=== PATIENT | male | born 1960 | race Caucasian/White ===

== ENCOUNTER 2021-02-22 11:27 | Outpatient (CLI) | payer OTHER, SELFPAY ==
--- NOTE | 2021-02-22 11:40 | XR_ITS ---
WS: [id number] Right knee, 4 views, 02/22/2021 Clinical Data: RIGHT KNEE PAIN Comparison: None. Findings: No fractures or dislocations are seen. There is narrowing of the medial joint compartment with small medial femoral condyle and medial tibial plateau spurs. There are posterior patellar spurs. The soft tissues are unremarkable. XR/XR knee RT 4V [id number] Impression: Minimal osteoarthritis of the medial joint compartment and posterior patella of the right knee. Kellgren-Tree Classification: grade 2 (minimal): definite osteophytes and p ossible joint space narrowing
== END 2021-02-22 11:28 | disposition home or self-care (01) ==
PROVIDERS: PCP Internal Medicine; Visit Provider Nurse Practitioner Family
DX: M25.561 Pain in right knee (principal); M17.11 Unilateral primary osteoarthritis, right knee
CPT/HCPCS: 73564

== ENCOUNTER 2021-03-07 15:00 | Outpatient (CLI) | payer OTHER, SELFPAY ==
--- NOTE | 2021-03-07 15:03 | MR_ITS ---
WS: [id number] MRI RIGHT KNEE HISTORY: KNEE JOINT Instability; right KNEE PAIN COMPARISON: 02/22/2021 radiographs Anterior cruciate ligament: Complete tear of the distal ACL. Posterior cruciate ligament: Intact. Medial collateral ligament: Intact but displaced from the joint line by the extruded meniscus. Posterior lateral corner structures: Intact. Medial menisci: Complex tear in the posterior horn. Marked fraying along the surfaces and very little normal meniscus identified. Suspected meniscal fragment towards the meniscal root. Lateral meniscus: Intrasubstance degeneration in the posterior horn and the anterior horn. No definit e tear is identified. Extensor mechanism: Distal quadriceps tendon is normal. Increased signal in the distal patellar tendo n from tendinopathy. Fluid and soft tissue: Moderate-sized suprapatellar joint effusion is mildly complex suggesting there has been hemorrhage also. There is a moderate amount of soft tissue edema around the anterior knee a nd also extending into the muscles posterior to the fibula. Moderate-sized Mix's cyst. Osseous and articular structures: Patellofemoral compartment: Mild narrowing of patellofemoral joint space. Focal defect at the patella r eminence. No marrow edema. Medial compartment: Moderate thinning and fissuring of the cartilage. Along the weightbearing surface is a 6 mm defect in the femoral cartilage. Very small amount of marrow edema along the tibial platea u. Lateral compartment: Joint space is preserved with some mild thinning and fissuring of the cartilage. No fracture. There is a very small amount of marrow edema and osteochondral defect along the tibial plateau towards the tibial spine. Edema within the infrapatellar fat pad. MR/MR knee RT wo con* [id number] IMPRESSION: 1. Torn distal ACL. 2. Complex tear posterior horn medial meniscus. Suspect meniscal fragment at t he root. Medial meniscus is extruded from the joint line. 3. Moderate-sized joint effusion and Mix's cyst. 4. Moderate thinning and fissuring of the cartilage in the medial compartment with a focal cartilage defect along the weightbearing surface of the femoral co ndyle. 5. Small osteochondral lesion along the lateral tibial plateau adjacent to the anterior tibial spine. 6. Focal patellar eminence chondromalacia. 7. Edema within the infrapatellar fat pad and a large amount of soft tissue ed rula surrounding the knee.
== END 2021-03-07 15:01 | disposition home or self-care (01) ==
LOC: RADSHAW 15:01
PROVIDERS: PCP Internal Medicine; Visit Provider Nurse Practitioner Family
DX: M25.361 Other instability, right knee (principal); S83.511A Sprain of anterior cruciate ligament of right knee, initial encounter; S83.231A Complex tear of medial meniscus, current injury, right knee, initial encounter; M25.461 Effusion, right knee; M71.21 Synovial cyst of popliteal space [Baker], right knee; M22.41 Chondromalacia patellae, right knee; R60.0 Localized edema; X58.XXXA Exposure to other specified factors, initial encounter
CPT/HCPCS: 73721

== ENCOUNTER 2021-04-04 12:19 | Outpatient (RCR) | payer OTHER, SELFPAY | END 2021-04-15 23:59 | disposition home or self-care (01) | LOC: SPT 12:19 | PROVIDERS: PCP Internal Medicine; Referring Provider Orthopaedic Surgery; Visit Provider Orthopaedic Surgery | DX: M17.11 Unilateral primary osteoarthritis, right knee (principal) | CPT/HCPCS: 97110; 97161 ==

== ENCOUNTER 2021-04-16 06:00 | Outpatient (RCR) | payer OTHER, SELFPAY | END 2021-05-16 23:59 | disposition home or self-care (01) | LOC: SPT 06:00 | PROVIDERS: PCP Internal Medicine; Referring Provider Orthopaedic Surgery; Visit Provider Orthopaedic Surgery | DX: M17.11 Unilateral primary osteoarthritis, right knee (principal) | CPT/HCPCS: 97110 ==

== ENCOUNTER → 2022-04-28 17:53 | Outpatient (BNVA) | payer BC, MEDICAID, SELFPAY | PROVIDERS: PCP Internal Medicine; Visit Provider Nurse Practitioner Family | DX: J06.9 Acute upper respiratory infection, unspecified (principal) | CPT/HCPCS: 87426 ==

== ENCOUNTER 2023-04-08 15:17 | Outpatient (CLI) | payer BC, MEDICAID, SELFPAY ==
--- NOTE | 2023-04-08 15:55 | XR_ITS ---
WS: [id number] EXAMINATION: XR knee LT 3V* [id number] REASON FOR EXAM: Left knee pain COMPARISON: None available. ORDER DATE: 04/08/2023 3:57 PM FINDINGS: There is no sign of any acute osseous or articular abnormality. Mild degenerative change present. The re are no specific soft tissue abnormalities. No sign of joint effusion XR/XR knee LT 3V* [id number] IMPRESSION: Very minor changes of osteoarthritis
--- NOTE | 2023-04-08 15:55 | XR_ITS ---
WS: [id number] EXAMINATION: XR knee RT 3V* [id number] REASON FOR EXAM: Right knee pain COMPARISON: 01/22/2021 ORDER DATE: 04/08/2023 3:57 PM FINDINGS: There are marginal osteophytes associated with the tibial spines, patella and other articular margins with medial and patellofemoral compartment narrowing. There is no sign of any acute fracture or disl ocation. A small joint effusion cannot be excluded but there is no evidence of any large effusion XR/XR knee RT 3V* [id number] IMPRESSION: MEDIAL AND PATELLOFEMORAL COMPARTMENT NARROWING WITH OSTEOARTHRITIC CHANGES.
== END 2023-04-08 15:18 | disposition home or self-care (01) ==
LOC: RAD 15:34
PROVIDERS: PCP Nurse Practitioner Family; Visit Provider Nurse Practitioner Family
DX: M17.0 Bilateral primary osteoarthritis of knee (principal)
CPT/HCPCS: 73562

== ENCOUNTER → 2023-05-13 12:49 | Outpatient (BNVA) | payer BC, MEDICAID, SELFPAY | PROVIDERS: PCP Nurse Practitioner Family; Referring Provider Nurse Practitioner Family; Visit Provider Specialist | DX: M17.0 Bilateral primary osteoarthritis of knee | CPT/HCPCS: 73560; 73565 ==

== ENCOUNTER 2024-05-27 14:38 | Inpatient (IN) | payer BC, SELFPAY ==
[2024-05-27] VITALS (29 sets, daily range): BP systolic 66–139; BP diastolic 48–91; PULSE 65–108; RESP 10–20; TEMP 36.8; O2SAT 90–99; BMI 45.6; BMI 44.1
--- NOTE | 2024-05-27 14:53 | W.ED.ANIMALB ---
HPI - Animal Bite General: Chief Complaint: Animal Bite Stated Complaint: Snake bite Time Seen by Provider: 05/27/24 14:38 Source: patient and EMS Mode of arrival: EMS Limitations: no limitations History of Present Illness: 63-year-old male who states that he was bit by a copperhead just prior to arrival. Bit him on the left leg he does have pain in the left leg he has no redness or swelling at this time. He denies any other injuries denies any shortness of breath Associated symptoms: Deny chills, fever(s) or headache(s) Related Data Previous Rx's Medication Instructions Recorded benzonatate 200 mg capsule 200 mg PO TID PRN cough #20 caps 04/28/22 prednisone 20 mg tablet 40 mg (2 x 20 mg) PO DAILY 5 days 04/28/22 #10 tabs meloxicam 15 mg tablet See Rx Instructions .Route 06/10/23 .COMPLEX #30 tabs Allergies Allergy/AdvReac Type Severity Reaction Status Date / Time No Known Allergies Allergy Verified 05/13/23 12:53 Review of Systems Const: Denies: fever(s), chills, body aches or change in appetite ENMT: Denies: throat pain or dental pain Card: Denies: chest pain Resp: Denies: dyspnea GI: Denies: abdominal pain, nausea, vomiting or diarrhea Musc: Reports: extremity pain; Denies: neck pain or back pain Skin/Breast: Denies: rash Neuro: Denies: headache(s) PFS ED PFSH: Medical History Hypertension Social History (Updated 05/27/24 @ 20:24 by Woody Taylor MD) Smoking and tobacco/nicotine status: current every day tobacco/nicotine user (VAPE) Alcohol intake: never Substance/Drug Use: never Physical Exam Const: COMMON NORMALS: no acute distress, patient oriented x3 and healthy appearing HENMT: COMMON NORMALS: normocephalic and atraumatic HEAD & SCALP: normocephalic and atraumatic Eye: COMMON NORMALS: Equal, round and reactive pupils present and EOMs intact bilaterally PUPIL: Yes Equal, round and reactive pupils present Neck/C-Spine: COMMON NORMALS: full ROM and supple Chest: COMMONS NORMALS: normal inspection of the chest Resp: COMMON NORMALS: normal respiratory effort, No retractions, No use of accessory muscles and clear to auscultation bilaterally AUSCULTATION: clear to auscultation bilaterally Cardio: COMMON NORMALS: regular rate, regular rhythm and No murmurs present (Cardio) RATE: regular rate RHYTHM: regular rhythm Extremity: COMMON NORMALS: full ROM NARRATIVE EXTREMITY EXAM: 2 puncture wounds noted to left lower leg no erythema or swelling Neuro: COMMON NORMALS: patient oriented x3, moves all extremities and no focal motor deficits Psych: COMMON NORMALS: mental status grossly normal, Normal thought process present and cooperative THOUGHT PROCESS: Normal thought process present Skin: COMMON NORMALS: no rashes or lesions noted and no wounds GENERAL SKIN EXAM: no rashes or lesions noted Course Reevaluation(s): Reevaluation #1: Recheck patient bite rosita he has no redness no swelling at this time he has had some nausea vomiting diarrhea has had slight hypotension could be having allergic reaction we will give him a dose of epinephrine at this time. Time: 16:39 Reevaluation #2: I did consult poison control I spoke to a adjunct phlebotomy instructor who recommended as there was no localized signs of redness or swelling did not give antivenom at this time. They recommended continue to treat like anaphylaxis with epinephrine antihistamines and steroid. Time: 17:11 Reevaluation #3: Patient's vomiting has improved his diarrhea is improving as well as blood pressures improved currently is 123/74 we will continue to monitor at this time Time: 18:57 Vital Signs: Vital signs: Vital Signs Temperature 98.2 F 05/27/24 14:43 Pulse Rate 94 05/27/24 19:39 Respiratory Rate 12 05/27/24 19:39 Blood Pressure 110/76 05/27/24 19:39 Pulse Oximetry 97 05/27/24 19:39 Oxygen Delivery Me thod Room Air 05/27/24 17:05 MDM - Animal Bite Medical Decision Making Patient presents here after a snakebite he had no localized reaction he did end up having a large amount of vomiting diarrhea hypertension likely anaphylactic reaction with histamine response. Patient's improved here after antihistamines Benadryl steroids and 2 doses of epinephrine his blood pressure here is stabilized his vomiting diarrhea is improved greatly. I did speak to poison control and adjunct phlebotomy instructor twice reviewing labs and patient's presentation they did not recommend antivenom at this time and continued treatment as he has improved with epinephrine. I spoke to the hospitalist will admit to the ICU at this time. Patient's heart rate now is 92 blood pressure 127/91 Lab Data 05/27/24 18:38 05/27/24 18:38 Radiology Impressions Chest X-Ray 05/27/24 16:29 IMPRESSION: No acute findings. Laboratory Results WBC 29.70 10^3/uL (3.29-11.43) H 05/27/24 18:38 RBC 6.85 10^6/uL (3.85-5.65) H 05/27/24 18:38 Hgb 18.60 g/dL (11.27-16.99) H 05/27/24 18:38 Hct 58.9 % (37-53) H 05/27/24 18:38 MCV 86.0 fl (82-101) 05/27/24 18:38 MCH 27.2 pg (27-33) 05/27/24 18:38 MCHC 31.6 g/dL (30-55) 05/27/24 18:38 RDW 15.0 % (12.1-15.1) 05/27/24 18:38 Plt Count 377 10^3/cmm (157-399) 05/27/24 18:38 MPV 10.2 fL (7.4-10.4) 05/27/24 18:38 Neut % (Auto) 87.2 % 05/27/24 18:38 Lymph % (Auto) 6.9 % 05/27/24 18:38 [place] % (Auto) 4.8 % 05/27/24 18:38 Eos % (Auto) 0.1 % 05/27/24 18:38 Baso % (Auto) 0.3 % 05/27/24 18:38 Neut # (Auto) 25.89 10^3/uL (1.8-7.7) H 05/27/24 18:38 Lymph # (Auto) 2.1 10^3/uL (0.8-4.8) 05/27/24 18:38 [place] # (Auto) 1.4 10^3/uL (0.2-0.9) H 05/27/24 18:38 Eos # (Auto) 0.0 10^3/uL (0.0-0.8) 05/27/24 18:38 Baso # (Auto) 0.1 10^3/uL (0.0-0.1) 05/27/24 18:38 Nucleated RBC % (auto) 0 % 05/27/24 18:38 Nucleated RBCs # 0.0 /100WBC 05/27/24 18:38 PT 15.00 SECONDS (12.1-14.9) H 05/27/24 18:38 INR 1.14 (0.8-1.2) 05/27/24 18:38 Fibrinogen 370 mg/dL (174-498) 05/27/24 18:38 D-Dimer >= 20.00 ug/mLFEU (0-0.59) H 05/27/24 18:38 Sodium 142 mmol/L (136-145) 05/27/24 18:38 Potassium 3.7 mmol/L (3.5-5.1) 05/27/24 18:38 Chloride 102 mmol/L (98-107) 05/27/24 18:38 Carbon Dioxide 22 mmol/L (22-29) 05/27/24 18:38 Anion Gap 21.7 (5-19) H 05/27/24 18:38 BUN 15 mg/dL (8-23) 05/27/24 18:38 Creatinine 1.5 mg/dL (0.7-1.2) H 05/27/24 18:38 GFR Calculation 47.1 mL/min (90-130) L 05/27/24 18:38 Glucose 197 mg/dL (65-115) H 05/27/24 18:38 Calculated Osmolality 300 mOsm/kg (285-295) H 05/27/24 18:38 Calcium 8.8 mg/dL (8.5-10.5) 05/27/24 18:38 Total Bilirubin 0.3 mg/dL (0.15-1.2) 05/27/24 14:17 AST 17 U/L (0-40) 05/27/24 14:17 ALT 12 U/L (0-41) 05/27/24 14:17 Alkaline Phosphatase 98 U/L (40-130) 05/27/24 14:17 Creatine Kinase 178 U/L (39-308) 05/27/24 18:38 Troponin T Baseline 17 ng/L (0-15) H 05/27/24 16:32 Troponin T 120 Minute 19.96 ng/L (0-15) H 05/27/24 18:05 Delta Troponin T 2.96 ABS# (0-10) 05/27/24 18:05 Total Protein 7.3 g/dL (6.6-8.7) 05/27/24 14:17 Albumin 4.6 g/dL (3.5-5.2) 05/27/24 14:17 Globulin 2.7 g/dL (1.3-4.6) 05/27/24 14:17 All radiology interpretation(s) finalized by discharge Critical Care Time Critical Care Time: Critical Care Time: Yes Total Critical Care Time: 75 Attestation: The high probability of a clinically significant, sudden or life threatening deterioration of the patient's cv system(s) required my full and direct attention, intervention and personal management. The critical care time is as shown. This time is in addition to time spent performing any reported procedures but includes the following: [x] Data and vital sign review and interpretation [x] Patient assessment, examination and intervention [x] Documentation [x] Medication orders and management Discharge Plan Discharge Patient Disposition: Admitted As Inpatient Admit Provider: Woody Taylor Clinical Impression: Anaphylactic reaction, Snake bite Condition: Stable Coding Level of Care Code ED Strategic Debriefing Specialist for Layla Mujica
[2024-05-27 14:59] LABS: Basophils # 0.1 10^3/uL (0.0-0.1); Basophils % 0.7 %; Eosinophils # 0.2 10^3/uL (0.0-0.8); Eosinophils % 2.7 %; Hematocrit 47.1 % (37-53); Lymphocytes # 2.5 10^3/uL (0.8-4.8); Lymphocytes % 30.7 %; Mean Corpuscular HGB Conc 32.5 g/dL (30-55); Mean Corpuscular Hemoglobin 27.4 pg (27-33); Mean Corpuscular Volume 84.3 fl (82-101); Mean Platelet Volume 10.1 fL (7.4-10.4); Monocytes # 0.6 10^3/uL (0.2-0.9); Neutrophils # 4.79 10^3/uL (1.8-7.7); Neutrophils % 58.4 %; Nucleated Red Blood Cells % 0 %; Platelet Count 265 10^3/cmm (157-399); Red Blood Count 5.59 10^6/uL (3.85-5.65); Red Cell Distribution Width 14.2 % (12.1-15.1)
--- NOTE | 2024-05-27 15:04 | ECG_ITS ---
[facility] Test Date: 2024-05-27 Pat Name: Rodo Whitten Department: Room: Gender: Male Clinical Investigator: : 1960 Requested By: Marissa Chino Order Number: [id number] Reading MD: DESHAWN LEE Measurements Intervals [place] Rate: 82 P: 0 OR: 0 QRS: 57 QRSD: 140 T: 67 QT: 421 QTc: 492 Interpretive Statements Sinus RHYTHM INTRAVENTRICULAR CONDUCTION DELAY [130+ ms QRS DURATION] INFERIOR MYOCARDIAL INFARCTION , PROBABLY OLD [40+ ms Q WAVE AND/OR ST/T ABNORMALITY IN II/aVF] ANTEROLATERAL MYOCARDIAL INFARCTION , OF INDETERMINATE AGE [40+ ms Q WAVE IN I/aVL/V3-V6] No previous ECG available for comparison Electronically Signed On 05-28-2024 11:50:21 CDT by DESHAWN LEE [id number]
[2024-05-27] MEDS: sodium chloride 0.9% 1,000 ML 999 ML IV ×2 (15:09→16:24)
[2024-05-27] MEDS: ondansetron 2 mg/ML SDV 2 mL 4 MG IVP ×2 (15:11→22:22)
[2024-05-27 15:12] LABS: INR 1.01 (0.8-1.2)
[2024-05-27 15:16] LABS: Alanine Aminotransferase 12 U/L (0-41); Albumin Level 4.6 g/dL (3.5-5.2); Alkaline Phosphatase 98 U/L (40-130); Anion Gap 17.2 (5-19); Aspartate Amino Transferase 17 U/L (0-40); Blood Urea Nitrogen 12 mg/dL (8-23); Calcium 8.9 mg/dL (8.5-10.5); Carbon Dioxide 27 mmol/L (22-29); Chloride 101 mmol/L (98-107); Creatinine Clr Calc Pharmacy 130.1639; Globulin 2.7 g/dL (1.3-4.6); Glomerular Filtration Rate 75.2 mL/min (90-130); Glucose 109 mg/dL (65-115); Osmolality Calculated 292 mOsm/kg (285-295); Potassium 4.2 mmol/L (3.5-5.1); Sodium 141 mmol/L (136-145); Total Bilirubin 0.3 mg/dL (0.15-1.2); Total Protein 7.3 g/dL (6.6-8.7)
[2024-05-27] MEDS: EPINEPHrine 1 mg/mL INJ 0.5 MG IM ×2 (16:23→17:59)
[2024-05-27] MEDS: diphenhydrAMINE 50 mg/mL SDV 1mL IVP (16:27)
--- NOTE | 2024-05-27 16:29 | XRR_ITS ---
PROCEDURE INFORMATION: Exam: XR Chest Exam date and time: 05/27/2024 6:11 PM Age: 63 years old Clinical indication: Pain; Chest pressure; Additional info: Cp TECHNIQUE: Imaging protocol: Radiologic exam of the chest. Views: 1 view. COMPARISON: CR XR shoulder RT min 2V* [id number] 07/29/2018 11:34 AM FINDINGS: Lungs: Unremarkable. No consolidation. Pleural spaces: Unremarkable. No pleural effusion. No pneumothorax. Heart/Mediastinum: Unremarkable. No cardiomegaly. Bones/joints: Unremarkable. XR/XR chest 1V portable [id number] IMPRESSION: No acute findings.
--- NOTE | 2024-05-27 16:29 | ECG_ITS ---
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: : 1960 Requested By: Marissa Chino Order Number: [id number] Reading MD: DESHAWN LEE Measurements Intervals [place] Rate: 76 P: 75 OR: 228 QRS: 76 QRSD: 127 T: 89 QT: 425 QTc: 480 Interpretive Statements SINUS RHYTHM WITH FIRST DEGREE AV BLOCK ANTEROLATERAL MYOCARDIAL INFARCTION , OF INDETERMINATE AGE [40+ ms Q WAVE IN I/aVL/V3-V6] Compared to ECG 05/27/2024 15:07:14 First degree AV block now present Intraventricular conduction delay no longer present Myocardial infarct finding still present Electronically Signed On 05-28-2024 11:49:35 CDT by DESHAWN LEE [id number]
[2024-05-27] MEDS: methylPREDNISolone sod succ 125 mg/2 mL INJ IVP (16:31)
[2024-05-27] MEDS: famotidine 20 mg/2 mL INJ 40 MG IVP ×2 (16:38→18:02)
[2024-05-27 16:40] LABS: Basophils # 0.1 10^3/uL (0.0-0.1); Basophils % 0.4 %; Eosinophils # 0.1 10^3/uL (0.0-0.8); Eosinophils % 0.4 %; Hematocrit 50.8 % (37-53); Lymphocytes # 1.8 10^3/uL (0.8-4.8); Lymphocytes % 7.6 %; Mean Corpuscular HGB Conc 31.9 g/dL (30-55); Mean Corpuscular Hemoglobin 27.3 pg (27-33); Mean Corpuscular Volume 85.7 fl (82-101); Mean Platelet Volume 10.2 fL (7.4-10.4); Monocytes % 4.3 %; Neutrophils # 20.65 10^3/uL (1.8-7.7); Neutrophils % 86.6 %; Nucleated Red Blood Cells % 0 %; Platelet Count 304 10^3/cmm (157-399); Red Blood Count 5.93 10^6/uL (3.85-5.65); Red Cell Distribution Width 14.2 % (12.1-15.1); White Blood Count 23.83 10^3/uL (3.29-11.43)
[2024-05-27 17:00] LABS: Troponin(5th) Baseline 17 ng/L (0-15)
[2024-05-27 17:07] LABS: Blood Urea Nitrogen 14 mg/dL (8-23); Calcium 9.2 mg/dL (8.5-10.5); Carbon Dioxide 22 mmol/L (22-29); Chloride 100 mmol/L (98-107); Creatinine Clr Calc Pharmacy 92.9742; Glucose 165 mg/dL (65-115); Osmolality Calculated 296 mOsm/kg (285-295); Sodium 141 mmol/L (136-145)
[2024-05-27 17:11] LABS: Anion Gap 23.2 (5-19); D Dimer 5.06 ug/mLFEU (0-0.59); Potassium 4.2 mmol/L (3.5-5.1)
--- NOTE | 2024-05-27 18:20 | ECG_ITS ---
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1960 Requested By: Marissa Chino Order Number: [id number] Reading MD: DESHAWN LEE Measurements Intervals [place] Rate: 91 P: 76 WV: 251 QRS: 71 QRSD: 122 T: 74 QT: 386 QTc: 476 Interpretive Statements SINUS RHYTHM WITH FIRST DEGREE AV BLOCK PROBABLE LATERAL MYOCARDIAL INFARCTION , OF INDETERMINATE AGE [35 ms Q WAVE IN I/aVL/V5/V6] INFERIOR MYOCARDIAL INFARCTION , PROBABLY OLD [40+ ms Q WAVE AND/OR ST/T ABNORMALITY IN II/aVF] Compared to ECG 05/27/2024 16:21:33 No significant changes Electronically Signed On 05-28-2024 11:57:52 CDT by DESHAWN LEE [id number]
[2024-05-27 18:34] LABS: Troponin 5 2HR 19.96 ng/L (0-15); Troponin 5 2HR Delta 2.96 ABS# (0-10)
[2024-05-27] MEDS: sodium chloride 0.9% 500 ML 999 ML IV (18:34)
[2024-05-27 18:54] LABS: Basophils # 0.1 10^3/uL (0.0-0.1); Basophils % 0.3 %; Eosinophils % 0.1 %; Hematocrit 58.9 % (37-53); Lymphocytes # 2.1 10^3/uL (0.8-4.8); Lymphocytes % 6.9 %; Mean Corpuscular HGB Conc 31.6 g/dL (30-55); Mean Corpuscular Hemoglobin 27.2 pg (27-33); Mean Platelet Volume 10.2 fL (7.4-10.4); Monocytes # 1.4 10^3/uL (0.2-0.9); Monocytes % 4.8 %; Neutrophils # 25.89 10^3/uL (1.8-7.7); Neutrophils % 87.2 %; Nucleated Red Blood Cells % 0 %; Platelet Count 377 10^3/cmm (157-399); Red Blood Count 6.85 10^6/uL (3.85-5.65)
[2024-05-27 19:16] LABS: INR 1.14 (0.8-1.2)
[2024-05-27 19:22] LABS: Blood Urea Nitrogen 15 mg/dL (8-23); Calcium 8.8 mg/dL (8.5-10.5); Carbon Dioxide 22 mmol/L (22-29); Chloride 102 mmol/L (98-107); Glomerular Filtration Rate 47.1 mL/min (90-130); Glucose 197 mg/dL (65-115); Osmolality Calculated 300 mOsm/kg (285-295); Sodium 142 mmol/L (136-145)
[2024-05-27 19:35] LABS: D Dimer >= 20.00 ug/mLFEU (0-0.59)
[2024-05-27 19:38] LABS: Anion Gap 21.7 (5-19); Potassium 3.7 mmol/L (3.5-5.1)
[2024-05-27 19:43] LABS: Creatine Phosphokinase 178 U/L (39-308); Fibrinogen 370 mg/dL (174-498)
--- NOTE | 2024-05-27 20:16 | P.HP_ITS ---
Providers/Chief Complaint 2 Primary Care Provider: Beth Laird Chief Complaint: Snake bite History of Present Illness Rodo Whitten is a 63 year old male with a past medical history of hypertension, who presents to [facility] as he had a copperhead snake bite to his left ankle. Patient tells me that he was in a crawl space fixing his air conditioning unit, when he saw a copperhead snake, it a bit just above his left ankle, immediately had pain, at the site no significant redness, or erythema, no bleeding. Patient arrived to the emergency room, was noted to have no redness or swelling at that time. But did report nausea, vomiting, diarrhea, with slight hypotension concern for allergic reaction was given epinephrine. ER provider spoke to poison control, who recommended there was no localized signs of redness or swelling and that he did not qualify for antivenom. They recommended continue treatment for anaphylaxis with epinephrine antihistamines and steroids. After a course of epinephrine, steroids, fluid therapy, Benadryl, blood pressures improved. Currently patient is alert oriented x 4, following all commands, his diarrhea has resolved still feels a bit nauseous, normotensive, on room air, no significant tachycardia, no headache, blurry vision, no lightheadedness, dizziness, does complain of pain at the site. But no visible swelling, erythema, drainage, bleeding. I did detailed discussion with him and his family about his present condition, will have to monitor in the ICU closely, currently he does not qualify for antivenom, however if his condition changes or other significant laboratory changes, we will touch back with toxicology. Will watch for recurrent anaphylaxis. Creatinine is up to 1.5 will hydrate him. Get his pain under control, monitor at the snakebite site closely. On examination there is no calf pain calf swelling, discussed with him and his family that we will have to watch closely for rhabdomyolysis, monitor for compartment syndrome, he has good DP PT pulses, good cap refill in his left lower extremity, no mottling. Nothing will watch out for his recurrent anaphylactic episodes, want monitor him for DIC, monitor for hematologic disease with coagulopathy or bleeding. Will also have to watch for acute weakness and paralysis. Denies any lip swelling, no tongue swelling, no difficulty breathing, no chest pain, no palpitations. Review of Systems 2 Const: Reports: body aches and fatigue; Denies: fever(s), chills or malaise Card: Denies: chest pain Resp: Denies: dyspnea GI: Reports: abdominal pain, nausea and vomiting; Denies: hematemesis : Denies: flank pain or difficulty urinating Musc: Reports: extremity pain Skin/Breast: Denies: rash Neuro: Denies: headache(s), numbness in extremities or weakness in extremities Endo: Denies: polyuria Medications/Allergies Home Medications Medication Instructions Recorded Confirmed Last Taken Type benzonatate 200 mg capsule 200 mg PO TID PRN cough #20 caps 04/28/22 05/13/23 Unknown Rx prednisone 20 mg tablet 40 mg (2 x 20 mg) PO DAILY 5 days 04/28/22 05/13/23 Unknown Rx #10 tabs meloxicam 15 mg tablet See Rx Instructions .Route 06/10/23 Unknown Rx .COMPLEX #30 tabs Allergies Allergy/AdvReac Type Severity Reaction Status Date / Time No Known Allergies Allergy Verified 05/13/23 12:53 PFSH Acute 2 PFSH: Medical History Hypertension Social History (Updated 05/27/24 @ 20:24 by Woody Taylor MD) Smoking and tobacco/nicotine status: current every day tobacco/nicotine user (VAPE) Alcohol intake: never Substance/Drug Use: never Vitals/I&O/Wt Last Vital Signs Temp 98.2 F 05/27/24 14:43 Pulse 94 05/27/24 19:39 Resp 12 05/27/24 19:39 BP 110/76 05/27/24 19:39 Pulse Ox 97 05/27/24 19:39 O2 Del Method Room Air 05/27/24 17:05 05/27/24 05/27/24 05/27/24 06:59 14:59 22:59 Intake Total 1000 / 1000 Balance 1000 / 1000 Weight last 48 hrs Weight 174.633 kg Physical Exam 2 Const: COMMON NORMALS: no acute distress and patient oriented x3 HENMT: COMMON NORMALS: normocephalic HEAD & SCALP: normocephalic Eye: COMMON NORMALS: Equal, round and reactive pupils present Resp: COMMON NORMALS: normal respiratory effort, No retractions, No use of accessory muscles and clear to auscultation bilaterally AUSCULTATION: clear to auscultation bilaterally Cardio: COMMON NORMALS: regular rate, regular rhythm, S1 normal heart sound present and S2 normal heart sound present RATE: regular rate RHYTHM: r egular rhythm HEART SOUNDS: S1 normal heart sound present and S2 normal heart sound present GI: COMMON NORMALS: Normal to inspection, nondistended, normoactive bowel sounds present, Soft to palpation and non-tender Extremity: COMMON NORMALS: no calf tenderness and no pedal edema Neuro: COMMON NORMALS: patient oriented x3 Psych: COMMON NORMALS: mental status grossly normal Data 05/27/24 18:38 05/27/24 18:38 A&P Assessment and plan (1) Anaphylactic reaction: (2) Poisoning by copperhead snake venom: (3) Acute kidney injury: Plan Copperhead snake bite -With concerns for anaphylactic reaction, requiring epinephrine, Solu-Medrol, Benadryl, fluid bolus -BLAS ? Developing coagulopathy elevated D-dimer, elevated PT ? Hemoglobin 18.6, platelet count 377 ? Case was discussed by ER provider with toxicology, recommended against antivenom for now, however will discuss with him if his conditions worsen, or develops coagulopathy or laboratory abnormalities -A snakebite site left leg, just above the ankle, no bleeding at the site ? Plan ? Monitor in ICU closely ? Epinephrine as needed, will consider epinephrine drip based on clinical progress ? IV fluids ? Monitor snakebite site closely, monitor for compartment syndrome, ? Tetanus to be given down to the emergency room ? Monitor CBC, INR, PT, BMP every 6 hours ? CPK within normal limits, monitor ? Monitor respiratory status closely Monitor mentation, monitor for weakness ? Full code Lovenox for DVT prophylaxis Attestations 2 Medical Necessity Statement*: Patient requires hospitalization, inpatient, greater than 2 midnights, for copperhead snake bite, with BLAS, with anaphylactic reaction Diagnoses Anaphylactic reaction T78.2XXA Poisoning by copperhead snake venom T63.061A Acute kidney injury N17.9
[2024-05-27] MEDS: tetanus-dipt-pertussis 0.5 mL SDV IM (21:20)
[2024-05-27 21:39] LABS: Procalcitonin 0.28 ng/mL (0-0.5)
[2024-05-27 22:10] LABS: Lactic Sepsis W/Reflex 5.1 mmol/L (0.5-2.2)
[2024-05-27] MEDS: enoxaparin 40 mg/0.4 mL Syringe SUBCUT (22:22)
[2024-05-27] MEDS: pantoprazole 40 mg SDV IVP (22:22)
[2024-05-27] MEDS: sodium chloride 0.9% 1,000 ML 150 ML IV (22:22)
--- NOTE | 2024-05-27 22:29 | ECG_ITS ---
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: : 1960 Requested By: Marissa Chino Order Number: [id number] Reading MD: DESHAWN LEE Measurements Intervals [place] Rate: 94 P: 66 CO: 204 QRS: 56 QRSD: 118 T: 72 QT: 360 QTc: 452 Interpretive Statements SINUS RHYTHM POSSIBLE LATERAL MYOCARDIAL INFARCTION , OF INDETERMINATE AGE [30 ms Q WAVE IN I/aVL/V5/V6] INFERIOR MYOCARDIAL INFARCTION , PROBABLY OLD [40+ ms Q WAVE AND/OR ST/T ABNORMALITY IN II/aVF] Compared to ECG 05/27/2024 18:20:17 First degree AV block no longer present Myocardial infarct finding still present Electronically Signed On 05-28-2024 11:57:09 CDT by DESHAWN LEE [id number]
[2024-05-27 22:32] LABS: Thyroid Stimulating Hormone 2.64 uIU/mL (0.27-4.20)
[2024-05-27] MEDS: acetaminophen 325 mg Tablet 650 MG PO (22:42)
[2024-05-27 23:09] LABS: Reflex Lactate Order REFLEX LACTIC ORDERD
[2024-05-27 23:37] LABS: Troponin 5 6HR 21.58 ng/L (0-15); Troponin 5 6HR Delta 4.58 ng/L (0-12)
--- NOTE | 2024-05-27 23:57 | PC.NURSE ---
Poison Control: Marina from poison control called and got an update on patient and recommended to keep leg elevated to heart level and try to keep the leg still.
[2024-05-28] VITALS (30 sets, daily range): BP systolic 82–145; BP diastolic 52–83; PULSE 60–111; RESP 12–19; TEMP 36.6–37.1; O2SAT 89–98
[2024-05-28 00:42] LABS: Basophils # 0.1 10^3/uL (0.0-0.1); Basophils % 0.2 %; Hematocrit 51.2 % (37-53); Lymphocytes # 0.8 10^3/uL (0.8-4.8); Lymphocytes % 3.2 %; Mean Corpuscular HGB Conc 32.6 g/dL (30-55); Mean Corpuscular Hemoglobin 27.6 pg (27-33); Mean Corpuscular Volume 84.6 fl (82-101); Monocytes # 0.9 10^3/uL (0.2-0.9); Monocytes % 3.6 %; Neutrophils # 22.45 10^3/uL (1.8-7.7); Neutrophils % 92.3 %; Nucleated Red Blood Cells % 0 %; Platelet Count 291 10^3/cmm (157-399); Red Blood Count 6.05 10^6/uL (3.85-5.65); Red Cell Distribution Width 14.5 % (12.1-15.1); White Blood Count 24.31 10^3/uL (3.29-11.43)
[2024-05-28] MEDS: morphine 4 mg/mL SDV 1 mL 2 MG IVP ×5 (00:42→22:13)
--- NOTE | 2024-05-28 00:47 | PC.NURSE ---
Patient's mid calf measures at 41cm.
--- NOTE | 2024-05-28 00:49 | PC.NURSE ---
Circled light red area around bite on left ankle/calf. Swelling in patients left foot, pulses palpable and patient has sensation.
[2024-05-28 00:54] LABS: INR 1.21 (0.8-1.2)
[2024-05-28 00:55] LABS: Fibrinogen 332 mg/dL (174-498)
[2024-05-28 01:05] LABS: Anion Gap 18.4 (5-19); Blood Urea Nitrogen 20 mg/dL (8-23); Calcium 8.1 mg/dL (8.5-10.5); Carbon Dioxide 20 mmol/L (22-29); Chloride 107 mmol/L (98-107); Creatine Phosphokinase 226 U/L (39-308); Glomerular Filtration Rate 38.2 mL/min (90-130); Glucose 165 mg/dL (65-115); Osmolality Calculated 298 mOsm/kg (285-295); Potassium 4.4 mmol/L (3.5-5.1); Sodium 141 mmol/L (136-145)
[2024-05-28 01:24] LABS: Lactic Acid level (Lactate) 4.4 mmol/L (0.5-2.2)
[2024-05-28] MEDS: sodium chloride 0.9% 1,000 ML 150 ML IV ×3 (05:09→20:13)
[2024-05-28 05:58] LABS: Basophils % 0.1 %; Hematocrit 47.7 % (37-53); Lymphocytes # 1.2 10^3/uL (0.8-4.8); Mean Corpuscular HGB Conc 32.3 g/dL (30-55); Mean Corpuscular Hemoglobin 27.6 pg (27-33); Mean Corpuscular Volume 85.6 fl (82-101); Neutrophils # 18.09 10^3/uL (1.8-7.7); Neutrophils % 88.3 %; Nucleated Red Blood Cells % 0 %; Platelet Count 264 10^3/cmm (157-399); Red Blood Count 5.57 10^6/uL (3.85-5.65); Red Cell Distribution Width 14.6 % (12.1-15.1); White Blood Count 20.49 10^3/uL (3.29-11.43)
[2024-05-28 06:12] LABS: Fibrinogen 331 mg/dL (174-498); INR 1.32 (0.8-1.2)
[2024-05-28 06:15] LABS: Anion Gap 16.8 (5-19); Blood Urea Nitrogen 26 mg/dL (8-23); Calcium 7.8 mg/dL (8.5-10.5); Carbon Dioxide 22 mmol/L (22-29); Chloride 106 mmol/L (98-107); Creatine Phosphokinase 277 U/L (39-308); Creatinine Clr Calc Pharmacy 58.1122; Glomerular Filtration Rate 30.3 mL/min (90-130); Glucose 153 mg/dL (65-115); Osmolality Calculated 298 mOsm/kg (285-295); Potassium 4.8 mmol/L (3.5-5.1); Sodium 140 mmol/L (136-145)
[2024-05-28] MEDS: pantoprazole 40 mg SDV IVP ×2 (11:18→23:10)
[2024-05-28 12:08] LABS: INR 1.26 (0.8-1.2)
[2024-05-28 12:09] LABS: Fibrinogen 328 mg/dL (174-498)
[2024-05-28 12:13] LABS: Anion Gap 16.6 (5-19); Blood Urea Nitrogen 30 mg/dL (8-23); Calcium 8.1 mg/dL (8.5-10.5); Carbon Dioxide 22 mmol/L (22-29); Chloride 105 mmol/L (98-107); Glucose 141 mg/dL (65-115); Osmolality Calculated 297 mOsm/kg (285-295); Potassium 4.6 mmol/L (3.5-5.1); Sodium 139 mmol/L (136-145)
[2024-05-28 12:15] LABS: Creatinine Clr Calc Pharmacy 60.8794
[2024-05-28 12:16] LABS: Creatine Phosphokinase 335 U/L (39-308)
--- NOTE | 2024-05-28 15:16 | P.PN_ITS ---
Subjective 2 Subjective: seen this morning complains of pain in foot labs reviewed pt requesting to move to regular floor and move out of icu Vitals/I&O/Wt Last Vital Signs Temp 97.9 F 05/28/24 04:02 Pulse 65 05/28/24 12:00 Resp 13 05/28/24 12:00 BP 145/63 05/28/24 11:00 Pulse Ox 94 05/28/24 12:00 O2 Del Method Room Air 05/27/24 23:42 05/28/24 05/28/24 05/28/24 06:59 14:59 22:59 Intake Total 1000 / 3500 1342.5 / 1342.5 Output Total 200 / 200 1200 / 1200 Balance 800 / 3300 142.5 / 142.5 Weight last 48 hrs Weight 169.145 kg Weight 169.145 kg Weight 174.633 kg Physical Exam 2 Const: COMMON NORMALS: no acute distress and patient oriented x3 HENMT: COMMON NORMALS: normocephalic HEAD & SCALP: normocephalic Eye: COMMON NORMALS: Equal, round and reactive pupils present PUPIL: Yes Equal, round and reactive pupils present Resp: COMMON NORMALS: normal respiratory effort, No retractions, No use of accessory muscles and clear to auscultation bilaterally AUSCULTATION: clear to auscultation bilaterally Cardio: COMMON NORMALS: regular rate, regular rhythm, S1 normal heart sound present and S2 normal heart sound present RATE: regular rate RHYTHM: r egular rhythm HEART SOUNDS: S1 normal heart sound present and S2 normal heart sound present GI: COMMON NORMALS: Normal to inspection, nondistended, normoactive bowel sounds present, Soft to palpation and non-tender PALPATION: Yes Soft to palpation Extremity: NARRATIVE EXTREMITY EXAM: swelling mainly in left foot, calf non edematous, non erythematous pulses present manually and by doppler Neuro: COMMON NORMALS: patient oriented x3 Psych: COMMON NORMALS: mental status grossly normal Data 05/29/24 04:58 05/29/24 04:58 A&P Assessment and plan (1) Anaphylactic reaction: (2) Poisoning by copperhead snake venom: (3) Acute kidney injury: Plan Copperhead snake bite -With concerns for anaphylactic reaction, requiring epinephrine, Solu-Medrol, Benadryl, fluid bolus -BLAS ? Developing coagulopathy elevated D-dimer, elevated PT ? Hemoglobin 18.6, platelet count 377 ? Case was discussed by ER provider with toxicology, recommended against antivenom for now, however will discuss with him if his conditions worsen, or develops coagulopathy or laboratory abnormalities -A snakebite site left leg, just above the ankle, no bleeding at the site ? Plan ? Monitor in ICU closely ? Epinephrine as needed, will consider epinephrine drip based on clinical progress ? IV fluids ? Monitor snakebite site closely, monitor for compartment syndrome, ? Tetanus to be given down to the emergency room ? Monitor CBC, INR, PT, BMP every 6 hours ? CPK within normal limits, monitor ? Monitor respiratory status closely Monitor mentation, monitor for weakness ? Full code Lovenox for DVT prophylaxis 05/28 Swelling present in left foot. Pulses present No evidence of necrosis or rash at this time Will recheck CBC in AM. Labs trending down Transfer to [facility] today. Continue IV fluids at this time. Attestations 2 Medical Necessity Statement*: Continue to hospitalize for copperhead snake bite. Potential discharge in a.m. Diagnoses Anaphylactic reaction T78.2XXA Poisoning by copperhead snake venom T63.061A Acute kidney injury N17.9
[2024-05-28] MEDS: enoxaparin 40 mg/0.4 mL Syringe SUBCUT (23:09)
[2024-05-29] VITALS (7 sets, daily range): BP systolic 109–130; BP diastolic 59–69; PULSE 57–74; RESP 15–18; TEMP 36.4–36.8; O2SAT 90–97
[2024-05-29] MEDS: sodium chloride 0.9% 1,000 ML 150 ML IV ×2 (02:55→09:16)
[2024-05-29 05:19] LABS: Basophils % 0.3 %; Eosinophils % 0.1 %; Hematocrit 38.4 % (37-53); Lymphocytes # 2.3 10^3/uL (0.8-4.8); Lymphocytes % 15.4 %; Mean Corpuscular HGB Conc 32.3 g/dL (30-55); Mean Corpuscular Hemoglobin 27.6 pg (27-33); Mean Corpuscular Volume 85.3 fl (82-101); Mean Platelet Volume 10.1 fL (7.4-10.4); Monocytes # 1.1 10^3/uL (0.2-0.9); Monocytes % 7.4 %; Neutrophils # 11.18 10^3/uL (1.8-7.7); Neutrophils % 76.3 %; Nucleated Red Blood Cells % 0 %; Platelet Count 199 10^3/cmm (157-399); Red Cell Distribution Width 14.8 % (12.1-15.1); White Blood Count 14.66 10^3/uL (3.29-11.43)
[2024-05-29 05:35] LABS: INR 1.23 (0.8-1.2)
[2024-05-29 05:49] LABS: NT Pro B Type Natriuretic Pept 113 pg/mL (0-125)
[2024-05-29 06:01] LABS: Anion Gap 14.3 (5-19); Blood Urea Nitrogen 25 mg/dL (8-23); Calcium 7.8 mg/dL (8.5-10.5); Carbon Dioxide 22 mmol/L (22-29); Chloride 109 mmol/L (98-107); Glucose 100 mg/dL (65-115); Osmolality Calculated 296 mOsm/kg (285-295); Potassium 4.3 mmol/L (3.5-5.1); Sodium 141 mmol/L (136-145)
[2024-05-29] MEDS: morphine 4 mg/mL SDV 1 mL 2 MG IVP (09:17)
[2024-05-29] MEDS: pantoprazole 40 mg SDV IVP (11:24)
--- NOTE | 2024-05-29 12:09 | PM.DCS ---
Discharge Providers Date of Admission: 05/27/24 20:22 Date of Discharge: May 29, 2024 Attending Provider at Admission: Woody Taylor MD Attending Provider at Discharge: Neyda Lara MD Primary Care Provider: Beth Laird Diagnoses at Discharge Discharge Diagnosis (1) Anaphylactic reaction: Status: Resolved (2) Poisoning by copperhead snake venom: Status: Acute (3) Acute kidney injury: Status: Resolved Reason for Visit Reason for Visit: Snake bite Hospital Course Hospital Course Patient presented with copperhead snake bite on left calf. He had a very strong anaphylactic reaction and was brought to ER. Antivenom was not given. Poison control was also contacted x 2 by ER doctor. Patient was given IV Benadryl and epinephrine intramuscular along with steroids. He was monitored in ICU. Did have elevated white count at 23,000 but it trended down. CK was also slightly elevated which improved. He was kept on IV fluids during hospitalization. Recommended to elevate his foot and weight-bear as tolerated. No evidence of blisters at this time. He was discharged home on 5 days of doxycycline and recommended to follow-up with his family care doctor as soon as possible after discharge. All questions answered to patient satisfaction. Physical Exam Const: COMMON NORMALS: no acute distress and patient oriented x3 HENMT: COMMON NORMALS: normocephalic HEAD & SCALP: normocephalic Eye: COMMON NORMALS: Equal, round and reactive pupils present PUPIL: Yes Equal, round and reactive pupils present Resp: COMMON NORMALS: normal respiratory effort, No retractions, No use of accessory muscles and clear to auscultation bilaterally AUSCULTATION: clear to auscultation bilaterally Cardio: COMMON NORMALS: regular rate, regular rhythm, S1 normal heart sound present and S2 normal heart sound present RATE: regular rate RHYTHM: regular rhythm HEART SOUNDS: S1 normal heart sound present and S2 normal heart sound present GI: COMMON NORMALS: Normal to inspection, nondistended, normoactive bowel sounds present, Soft to palpation and non-tender PALPATION: Yes Soft to palpation Extremity: NARRATIVE EXTREMITY EXAM: swelling mainly in left foot, calf non edematous, non erythematous pulses present manually today. Neuro: COMMON NORMALS: patient oriented x3 Psych: COMMON NORMALS: mental status grossly normal Discharge Data Studies Completed and Pending Completed Studies During Hospitalization Category Date Time Status CXRP [XR chest 1V portable [id number]] Stat Exams 05/27/24 16:29 Completed Radiology Impressions Chest X-Ray 05/27/24 16:29 IMPRESSION: No acute findings. Laboratory Results WBC 14.66 10^3/uL (3.29-11.43) H 05/29/24 04:58 RBC 4.50 10^6/uL (3.85-5.65) 05/29/24 04:58 Hgb 12.40 g/dL (11.27-16.99) 05/29/24 04:58 Hct 38.4 % (37-53) 05/29/24 04:58 MCV 85.3 fl (82-101) 05/29/24 04:58 MCH 27.6 pg (27-33) 05/29/24 04:58 MCHC 32.3 g/dL (30-55) 05/29/24 04:58 RDW 14.8 % (12.1-15.1) 05/29/24 04:58 Plt Count 199 10^3/cmm (157-399) 05/29/24 04:58 MPV 10.1 fL (7.4-10.4) 05/29/24 04:58 Neut % (Auto) 76.3 % 05/29/24 04:58 Lymph % (Auto) 15.4 % 05/29/24 04:58 [place] % (Auto) 7.4 % 05/29/24 04:58 Eos % (Auto) 0.1 % 05/29/24 04:58 Baso % (Auto) 0.3 % 05/29/24 04:58 Neut # (Auto) 11.18 10^3/uL (1.8-7.7) H 05/29/24 04:58 Lymph # (Auto) 2.3 10^3/uL (0.8-4.8) 05/29/24 04:58 [place] # (Auto) 1.1 10^3/uL (0.2-0.9) H 05/29/24 04:58 Eos # (Auto) 0.0 10^3/uL (0.0-0.8) 05/29/24 04:58 Baso # (Auto) 0.0 10^3/uL (0.0-0.1) 05/29/24 04:58 Nucleated RBC % (auto) 0 % 05/29/24 04:58 Nucleated RBCs # 0.0 /100WBC 05/29/24 04:58 PT 15.90 SECONDS (12.1-14.9) H 05/29/24 04:58 INR 1.23 (0.8-1.2) H 05/29/24 04:58 Fibrinogen 328 mg/dL (174-498) 05/28/24 11:48 D-Dimer >= 20.00 ug/mLFEU (0-0.59) H 05/27/24 18:38 Sodium 141 mmol/L (136-145) 05/29/24 04:58 Potassium 4.3 mmol/L (3.5-5.1) 05/29/24 04:58 Chloride 109 mmol/L (98-107) H 05/29/24 04:58 Carbon Dioxide 22 mmol/L (22-29) 05/29/24 04:58 Anion Gap 14.3 (5-19) 05/29/24 04:58 BUN 25 mg/dL (8-23) H 05/29/24 04:58 Creatinine 1.2 mg/dL (0.7-1.2) 05/29/24 04:58 GFR Calculation 61.0 mL/min (90-130) L 05/29/24 04:58 Glucose 100 mg/dL (65-115) 05/29/24 04:58 Calculated Osmolality 296 mOsm/kg (285-295) H 05/29/24 04:58 Lactic Acid 5.1 mmol/L (0.5-2.2) H* 05/27/24 21:20 Lactic Acid (Sepsis) 4.4 mmol/L (0.5-2.2) H* 05/28/24 00:36 Calcium 7.8 mg/dL (8.5-10.5) L 05/29/24 04:58 Total Bilirubin 0.3 mg/dL (0.15-1.2) 05/27/24 14:17 AST 17 U/L (0-40) 05/27/24 14:17 ALT 12 U/L (0-41) 05/27/24 14:17 Alkaline Phosphatase 98 U/L (40-130) 05/27/24 14:17 Creatine Kinase 335 U/L (39-308) H* 05/28/24 11:48 Troponin T Baseline 17 ng/L (0-15) H 05/27/24 16:32 Troponin T 120 Minute 19.96 ng/L (0-15) H 05/27/24 18:05 Delta Troponin T 2.96 ABS# (0-10) 05/27/24 18:05 Troponin T Hi Sens 6Hr 21.58 ng/L (0-15) H 05/27/24 22:55 Troponin T Hi Sens 6Hr Delta 4.58 ng/L (0-12) 05/27/24 22:55 C-Reactive Protein 3.0 mg/L (0.0-4.9) 05/27/24 18:38 NT-Pro-B Natriuret Pep 113 pg/mL (0-125) 05/29/24 04:58 Total Protein 7.3 g/dL (6.6-8.7) 05/27/24 14:17 Albumin 4.6 g/dL (3.5-5.2) 05/27/24 14:17 Globulin 2.7 g/dL (1.3-4.6) 05/27/24 14:17 Procalcitonin 0.28 ng/mL (0-0.5) 05/27/24 18:38 TSH 2.64 uIU/mL (0.27-4.20) 05/27/24 18:48 Vitals Last Vital Signs Temp 98.3 F 05/29/24 11:21 Pulse 57 L 05/29/24 11:21 Resp 16 05/29/24 11:21 BP 115/64 05/29/24 11:21 Pulse Ox 90 05/29/24 11:21 O2 Del Method Room Air 05/29/24 11:21 Discharge Plan Discharge Patient Disposition: Home Condition: Stable Prescriptions: New doxycycline hyclate 100 mg tablet 100 mg PO BID 5 Days Qty: 10 0RF Continued benzonatate 200 mg capsule 200 mg PO TID PRN (Reason: cough) Qty: 20 0RF meloxicam 15 mg tablet See Rx Instructions .ROUTE .COMPLEX Qty: 30 0RF Dose Instruction: TAKE 1 TABLET BY MOUTH ONCE DAILY FOR KNEE PAIN Rx Instructions: TAKE 1 TABLET BY MOUTH ONCE DAILY FOR KNEE PAIN atorvastatin 40 mg tablet 40 mg PO BEDTIME Held lisinopril 40 mg tablet 40 mg PO DAILY Hold Instructions: see pcp amlodipine 10 mg tablet 10 mg PO DAILY Hold Instructions: see pcp Discharge Orders: Discharge Order (Routine); Ordered 05/29/24 Ordered By: Neyda Lara Referrals: Beth Laird FNP [Primary Care Provider] - 06/09/24 9:30 am Discharge Diet: Cardiac Discharge Activity: Increase activity as tolerated and Use walker/crutches as instructed Patient Instructions: Doxycycline (By mouth), Snake Bite (GEN), Opioid Safety Discharge Attestations Time Spent in Discharge Care*: less than 30 min Quality Metrics Clinical Quality Measures [ No reported AMI, CVA or VTE this stay] Coding Level of Care Code Acute Code for Chg Fwd Diagnoses Anaphylactic reaction T78.2XXA Poisoning by copperhead snake venom T63.061A Acute kidney injury N17.9
--- NOTE | 2024-05-29 12:51 | PC.NURSE ---
Patient has signed discharge paperwork with no other needs at this time. Patient is awaiting ride from for discharge transport.
[2024-05-29] MEDS: acetaminophen 325 mg Tablet 650 MG PO (14:11)
== END 2024-05-29 14:19 | disposition home or self-care (01) | DRG 918 ==
LOC: ER 18:45 → ICU 20:23 → MEDSURG 05-28 16:10
PROVIDERS: Admitting Provider Family Medicine; Emergency Provider Emergency Medicine; PCP Nurse Practitioner Family; Visit Provider Internal Medicine
DX: T63.091A Toxic effect of venom of other snake, accidental (unintentional), initial encounter (principal); N17.9 Acute kidney failure, unspecified; T78.2XXA Anaphylactic shock, unspecified, initial encounter; I10 Essential (primary) hypertension; F17.290 Nicotine dependence, other tobacco product, uncomplicated; Z79.899 Other long term (current) drug therapy
CPT/HCPCS: 36415; 71045; 80048; 80053; 82550; 83605; 83880; 84145; 84443; 84484; 85025; 85378; 85384; 85610; 86140; 90471; 90715; 93005; 96372; 96374; 96375; 96376; 99285; J0171; J1200; J1650; J2270; J2405; J2470; J2919; J3490; J7030; J7040

== ENCOUNTER 2024-07-29 15:27 | Outpatient (CLI) | payer BC, MEDICAID, SELFPAY ==
--- NOTE | 2024-07-29 15:29 | US_ITS ---
WS: [id number] ULTRASOUND SOFT TISSUES posterior LEFT cervical chain. HISTORY: NECK MASS COMPARISON: None available. TECHNIQUE: 2-D and color Doppler imaging is submitted. Palpable area along the posterior LEFT lateral neck corresponds to a hypoechoic round mass without si gnificant increased vascularity. Mass measures 2.0 x 1.7 x 1.4 cm. There is no tract extending superf icial. There is displacement of the adjacent fascial and muscle planes. Only a single mass is identif ied US/US soft tissue head neck [id number] IMPRESSION: 1. Abnormal mass corresponds to the palpable abnormality. This may be a lymph node or metastatic deposit. Lymph node may be reactive or neoplastic. Recommend follow-up neck CT with IV contrast.
== END 2024-07-29 15:28 | disposition home or self-care (01) ==
LOC: RAD 15:27
PROVIDERS: PCP Nurse Practitioner Family; Visit Provider Nurse Practitioner Family
DX: R22.1 Localized swelling, mass and lump, neck (principal)
CPT/HCPCS: 76536

== ENCOUNTER 2024-07-31 15:41 | Outpatient (CLI) | payer BC, MEDICAID, SELFPAY ==
--- NOTE | 2024-07-31 15:42 | CTR_ITS ---
PROCEDURE INFORMATION: Exam: CT Neck With Contrast Exam date and time: 07/31/2024 4:17 PM Age: 63 years old Clinical indication: Mass, lump, or swelling in neck; Left; Additional info: Neck mass TECHNIQUE: Imaging protocol: Computed tomography of the neck with contrast. Radiation optimization: All CT scans at this facility use at least one of these dose optimization techniques: automated exposure control; mA and/or kV adjustment per patient size (includes targeted exams where dose is matched to clinical indication); or iterative reconstruction. Contrast material: OMNIPAQUE 350; Contrast volume: 100 ml; Contrast route: INTRAVENOUS (IV); COMPARISON: US soft tissue head neck [id number] 07/29/2024 3:59 PM RADIATION DOSE METRICS: Total DLP (mGy-cm): 337.6 FINDINGS: Salivary glands: Normal. Glands are normal in size. Pharynx: Unremarkable. No significant tonsillar enlargement. Prevertebral and retropharyngeal spaces: Unremarkable. Larynx: Unremarkable. Epiglottis is normal. Thyroid: Normal. No enlarged or calcified nodules. Trachea: Visualized trachea is unremarkable. Lungs: Unremarkable as visualized. Lymph nodes: 1.9 x 1.5 x 2.2 cm ovoid left level Va lymph node superficial to the middle scalene muscle. Enlarged right level IIa lymph node measuring 1.2 cm short axis (series 3, image 52). Enlarged left level IIa lymph node measuring 1.0 cm (image 53). Vasculature: Mild atherosclerotic calcifications of bilateral carotid bulbs without hemodynamically significant stenosis. Mild calcifications also seen along the carotid siphons. Bones/joints: Moderate spondylosis of the cervical spine. No acute fracture. Soft tissues: Unremarkable. No significant soft tissue swelling. CT/CT neck w con* [id number] IMPRESSION: 1. Enlarged left level Va cervical lymph node, concerning for malignancy until proven otherwise. Recommend tissue sampling for further assessment. This would likely be amenable to ultrasound-guided biopsy. PET-CT could also be considered. 2. Mildly enlarged bilateral level IIa lymph nodes could represent metastases. Attention on follow-up recommended.
[2024-07-31 16:19] LABS: Blood Urea Nitrogen 11 mg/dL (8-23); Glomerular Filtration Rate 75.2 mL/min (90-130)
[2024-07-31] MEDS: iohexol 350 mg/mL 500 mL Btl (per mL) IV (16:28)
== END 2024-07-31 15:42 | disposition home or self-care (01) ==
LOC: RAD 15:41
PROVIDERS: PCP Nurse Practitioner Family; Visit Provider Nurse Practitioner Family
DX: R59.0 Localized enlarged lymph nodes (principal); M47.812 Spondylosis without myelopathy or radiculopathy, cervical region
CPT/HCPCS: 70491; 82565; 84520

== ENCOUNTER 2024-08-28 10:18 | Outpatient (CLI) | payer BC, MEDICAID, SELFPAY ==
--- NOTE | 2024-08-28 10:22 | CT_ITS ---
WS: [id number] CT chest wo/w con [id number] HISTORY: METASTATIC SQUAMOUS CELL CANCER TECHNIQUE: Axial imaging performed through the thorax. Coronal and sagittal reformats are submitted. All CT scans at [facility] use at least one of these dose optimization techniques: automated exposure control; mA and/or kV adjustment per patient size (includes targeted exams where dose is mat ched to clinical indication); or iterative reconstruction. CONTRAST: Omnipaque 350; 100 mL IV. DLP: 1556.04 mGy.cm COMPARISON: None available. Lungs and central airway: Lungs are clear. No pulmonary nodules or mass. No pneumonia. Pleura: Normal. No pleural effusion. Heart and pericardium: Normal size heart with no pericardial effusion. Mediastinum and liliya: No mediastinum or hilar adenopathy. Vessels: Normal size aortic and pulmonary artery. No coronary artery calcifications. Chest wall and lower neck: No soft tissue masses. Upper abdomen: Normal adrenal glands. Visualized liver is normal. Osseous structures: Mild mid thoracic spondylosis. No destructive bone lesions. CT/CT chest wo/w con [id number] IMPRESSION: 1. No metastatic disease to the lungs. 2. No mediastinal or hilar adenopathy. 3. No pleural effusions.
[2024-08-28] MEDS: iohexol 350 mg/mL 500 mL Btl (per mL) IV (10:59)
== END 2024-08-28 10:19 | disposition home or self-care (01) ==
LOC: RAD 10:19
PROVIDERS: PCP Nurse Practitioner Family; Visit Provider Nurse Practitioner Family
DX: C80.1 Malignant (primary) neoplasm, unspecified (principal); M47.894 Other spondylosis, thoracic region
CPT/HCPCS: 71270

== ENCOUNTER 2024-10-02 12:57 | Outpatient (CLI) | payer MEDICARE, MEDICAID, SELFPAY ==
--- NOTE | 2024-10-02 15:03 | PETR_ITS ---
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 Then, PET images were obtained. Attenuation corrected images were constructed using the CT scan. Fused images of PET and CT were reviewed. The standardized uptake values (SUV) reported below are maximum values within a region of interest, expressed in gm/ml. Exam includes orbital meatal line to mid-thigh. SUV normalization method: BodyWeight Radiopharmaceutical: 12.61 mCi F-18 FDG (Fluorodeoxyglucose), IV. Time of imaging post radiopharmaceutical administration: 48 minutes Injection site: right ac COMPARISON: CT neck with contrast 07/31/2024, CT chest wo/w con [id number] 08/28/2024 FINDINGS: Brain: Normal physiologic uptake. Pharynx: Intense uptake of 23.4 SUV in the midline in the nasopharynx is concerning for primary malignancy. Normal physiologic uptake in bilateral tonsils with no abnormal enlargement. Larynx: No abnormal uptake. Lungs, pleura and trachea: No abnormal uptake. No lung nodules or masses. No pleural effusion. Heart: No abnormal uptake. There is no cardiomegaly. There is no pericardial effusion. Mediastinal space: No abnormal uptake. Liver: No abnormal uptake. Maximum uptake is 3.6 SUV. Gallbladder and biliary ducts: No abnormal uptake. No calcified gallstones. Pancreas: No abnormal uptake. Spleen: No abnormal uptake. No splenomegaly. Adrenal glands: No abnormal uptake. Kidneys and ureters: Normal physiologic uptake. No hydronephrosis. 5 mm nonobstructive stone in the left renal pelvis. Stomach and bowel: Focal intense uptake of 19 SUV in the cecum questionably corresponding to the mural nodule for correlation with endoscopy. Vasculature: No abnormal uptake. No aortic aneurysm. Lymph nodes: FDG avid lymph nodes on both sides of the neck represents metastatic disease. 1.8 x 1.3 cm left retropharyngeal lymph node measures 32.9 SUV. Rounded 1 x 0.9 cm left upper jugular level 2 lymph node measures 32.8 SUV. 1.8 x 1.4 cm left level 5 lymph node above the level of cricoid cartilage measures 11.8 SUV. 2.2 x 2 cm right jugulodigastric lymph node (level 2) measures 26 SUV. 1 x 0.9 cm right upper jugular level 2 lymph node measures 25.4 SUV. No FDG avid lymphadenopathy in the chest, abdomen, pelvis, and extremities. Skeleton: No abnormal uptake in the visualized axial and appendicular skeleton. Grade 1 anterolisthesis of L4 associated with L4-L5 facet arthropathy. Soft tissues: Increased uptake of 8.6 SUV at the attachment of the right hamstrings tendons the right ischial tuberosity and small focus measuring 7.8 SUV laterally to the greater trochanter of the right femur are suggestive of benign findings. 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 FDG avid metastatic lymphadenopathy on both sides of the neck involving left retropharyngeal nodes, bilateral level 2 and left level 5 (above the level of cricoid cartilage) not exceeding 6 cm with the highest uptake of 32.9 SUV in the left retropharyngeal lymph node are suggestive of N2 disease. No FDG avid findings outside of the neck concerning for metastasis from nasopharyngeal primary. Intensely FDG avid nodule in the cecum measuring 19 SUV requires endoscopic correlation to evaluate for possible primary neoplasm.
== END 2024-10-02 12:58 | disposition home or self-care (01) ==
LOC: RAD 12:57
PROVIDERS: PCP Nurse Practitioner Family; Visit Provider Specialist
DX: C76.0 Malignant neoplasm of head, face and neck (principal); R93.3 Abnormal findings on diagnostic imaging of other parts of digestive tract; M47.896 Other spondylosis, lumbar region; R59.0 Localized enlarged lymph nodes
CPT/HCPCS: 78815; A9552

== ENCOUNTER 2024-10-15 06:51 | Day surgery (SDC) | payer MEDICARE, MEDICAID, SELFPAY ==
--- NOTE | 2024-10-15 05:40 | W.PM.OPSFHP ---
Same Day Surgery H&P Indication for Procedure/HPI DATE OF PROCEDURE: October 15, 2024 CHIEF COMPLAINT/INDICATIONFOR SURGICAL PROCEDURE: need for screening colonoscopy PREOP DIAGNOSIS: positive cologuard PLANNED PROCEDURE: Operation Date: 10/15/24 07:40 Proposed Procedures p Colonoscopy 81336, G0105, Z12.11(Not Applicable) - Jet Medina MD Medications/Allergies* Home Medications Medication Instructions Recorded Confirmed Type amlodipine 10 mg tablet 10 mg PO DAILY 05/27/24 10/13/24 History atorvastatin 40 mg tablet 40 mg PO BEDTIME 05/27/24 10/13/24 History lisinopril 40 mg tablet 40 mg PO DAILY 05/27/24 10/13/24 History citalopram 40 mg tablet 40 mg PO DAILY 10/13/24 10/13/24 History meloxicam 15 mg tablet 15 mg PO DAILY PRN knee pain 10/13/24 10/13/24 History Allergies/Adverse Reactions Allergy/AdvReac Type Severity Reaction Status Date / Time No Known Allergies Allergy Verified 10/13/24 10:02 Pertinent History/Comorbid Conditions* Medical History (Updated 08/26/24 @ 11:37 by Jet Medina MD) Hypertension Social History Smoking and tobacco/nicotine status: never used tobacco/nicotine Alcohol intake: never Substance/Drug Use: never Pertinent Exam Findings alert, oriented x 3, clear to auscultation bilaterally and regular rate & rhythm Recommendations Surgery/Procedure today Coding Level of Care Code Acute Code for Chg Fwd
[2024-10-15 07:03] VITALS: BP 137/80; PULSE 62; RESP 16; TEMP 36.1; O2SAT 97; BMI 41.5
[2024-10-15] MEDS: sodium chloride 0.9% 500 ML 15 ML IV (07:13)
--- NOTE | 2024-10-15 07:20 | ANES.PREANE2 ---
Pre-Anesthetic Assessment Height/Weight: Height 1.96 m Weight 158.757 kg Temp Pulse Resp BP Pulse Ox O2 Del Method 97 F L 62 16 137/80 97 Room Air 10/15/24 07:03 10/15/24 07:03 10/15/24 07:03 10/15/24 07:03 10/15/24 07:03 10/15/24 07:03 Preop Diagnosis: positive cologuard Operation Date: 10/15/24 07:40 Proposed Procedures p Colonoscopy 49597, G0105, Z12.11(Not Applicable) - Jet Medina MD Familial anesthetic complications: None Was Beta Carley taken within 24 hours: N/A Was Clonidine taken within 24 hours: N/A Last intake: Intake Last Liquid Date 10/14/24 Last Liquid Time 20:00 Last Solid Date 10/13/24 Last Solid Time 21:00 Social No alcohol and No tobacco Exam alert, oriented x 3, clear to auscultation bilaterally and regular rate & rhythm Airway Mallampati: Class I Dentition: full Comments: Comments: Full sanchez 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 - patient denotes no feeling of mass effect, dificulty breathing or swallowing, airway exam normal w/ Mallampati grade I CV/HEM Hypertension Metabolic Hyperlipidemia and Morbid Obesity Anesthetic Plan ASA status: 3 Anesthesia: MAC Risk of > 500 ml blood loss (7ml/kg in children): No Medications/Allergies Home Medications Medication Instructions Recorded Confirmed Last Taken Type amlodipine 10 mg tablet 10 mg PO DAILY 05/27/24 10/15/24 10/14/24 History atorvastatin 40 mg tablet 40 mg PO BEDTIME 05/27/24 10/15/24 10/13/24 History lisinopril 40 mg tablet 40 mg PO DAILY 05/27/24 10/15/24 10/14/24 History citalopram 40 mg tablet 40 mg PO DAILY 10/13/24 10/15/24 10/13/24 History meloxicam 15 mg tablet 15 mg PO DAILY PRN knee pain 10/13/24 10/15/24 10/13/24 History Allergies Allergy/AdvReac Type Severity Reaction Status Date / Time No Known Allergies Allergy Verified 10/13/24 10:02 Current Medications Generic Name Dose Route Start Last Admin Trade Name Freq PRN Reason Stop Dose Admin Sodium Chloride 500 mls @ 15 mls/hr 10/15/24 06:52 10/15/24 07:13 Sodium Chloride 0.9% IV 10/16/24 06:51 15 mls/hr .Q24H PRN Administration COLONOSCOPY FLUIDS PFSH Anesthesia Medical History Hypertension Social History Smoking and tobacco/nicotine status: never used tobacco/nicotine Alcohol intake: never Substance/Drug Use: never Data Anesthesia Cardiac Studies: No Data to Display
[2024-10-15 08:14] VITALS: BP 106/59; PULSE 57; RESP 20; TEMP 36.1; O2SAT 96
[2024-10-15 08:29] VITALS: BP 122/75; PULSE 71; RESP 17; O2SAT 99
--- NOTE | 2024-10-15 14:02 | ANE.PACU2 ---
Inpatient post-anesthesia follow up: Airway intact: Yes Vital signs: Temperature 97.0 F Pulse Rate 71 Respiratory Rate 17 Blood Pressure 122/75 Pulse Oximetry 99 Oxygen Delivery Me thod Room Air Oxygen Flow Rate Fraction of Inspir ed Oxygen Hydration adequate: Yes Nausea and vomiting: No Pain level: 1 Mental status: Baseline
== END 2024-10-15 08:45 | disposition home or self-care (01) ==
PROVIDERS: PCP Nurse Practitioner Family; Visit Provider Surgery
PROC: 0DJD8ZZ Inspection of Lower Intestinal Tract, Via Natural or Artificial Opening Endoscopic (ICD-10-PCS; CPT 45378; principal; 2024-10-15 07:40)
DX: Z12.11 Encounter for screening for malignant neoplasm of colon (principal); D12.2 Benign neoplasm of ascending colon; R19.5 Other fecal abnormalities; Z79.899 Other long term (current) drug therapy; I10 Essential (primary) hypertension; E78.5 Hyperlipidemia, unspecified; E66.01 Morbid (severe) obesity due to excess calories; Z68.41 Body mass index [BMI] 40.0-44.9, adult
CPT/HCPCS: 45378; 45380; 88305; J2704; J3490; J7040

== ENCOUNTER → 2024-10-21 13:30 | Outpatient (BNVA) | payer MEDICARE, MEDICAID, SELFPAY | PROVIDERS: PCP Nurse Practitioner Family; Visit Provider Surgery | DX: Z09 Encounter for follow-up examination after completed treatment for conditions other than malignant neoplasm (principal) | CPT/HCPCS: 99213 ==

== ENCOUNTER 2025-04-19 13:37 | Emergency (ER) | payer MEDICARE, OTHER, MEDICAID, SELFPAY ==
[2025-04-19 13:40] VITALS: BP 134/85; PULSE 83; RESP 16; TEMP 37.1; O2SAT 100; BMI 36.0
--- NOTE | 2025-04-19 13:40 | XR_ITS ---
WS: [id number] XR chest 1V portable [id number] REASON FOR EXAM: weakness FINDINGS: Chest is unchanged compared to 05/27/2024. The heart and the mediastinum are within normal limits. Mild to moderate tortuosity and ectasia of the thoracic aorta. Normal heart size. Coronary artery stent. Calcified granulomatous disease bilaterally. No acute pulmonary parenchymal or pleural abnormality. Significant degenerative spondylosis in the thoracic spine. XR/XR chest 1V portable [id number] IMPRESSION: Stable chest without acute abnormality.
--- NOTE | 2025-04-19 13:40 | ECG_ITS ---
[facility]25[facility]19 Pat Name: Rodo Whitten Department: Room: Gender: Male Intertype Operator: : 1960 Requested By: Marissa Chino Order Number: [id number] Francisco Javier MD: Shorty Johnson M.D. Measurements Intervals [place] Rate: 64 P: 56 MN: 254 QRS: 37 QRSD: 110 T: 49 QT: 403 QTc: 418 Interpretive Statements SINUS RHYTHM WITH FIRST DEGREE AV BLOCK Compared to ECG 05/27/2024 23:16:03 First degree AV block now present Myocardial infarct finding no longer present Electronically Signed On 04-20-2025 23:04:52 CDT by Shorty Johnson M.D. [email or web address]
--- OUTSIDE RECORDS SUMMARY | 2025-04-19 13:44 | XMS_ITS | Clinical Summary ---
Author Organization [facility] Address [address] [place] [address] Care Team Providers Care Performance Test Consultant Name Role Phone Unavailable Primary Care Provider Unavailabl e Allergies No known active allergies Medications amLODIPine (NORVASC) 10 mg tablet TAKE 1 TABLET BY MOUTH ONCE DAILY 01/29/2020 Active atorvastatin (LIPITOR) 40 mg tablet TAKE 1 TABLET BY MOUTH NIGHTLY 01/29/2020 Active ibuprofen (MOTRIN) 800 mg tablet TAKE 1 TABLET BY MOUTH EVERY 8 HOURS NEEDED WITH FOOD FOR PAIN 02/02/2020 Active lisinopriL (PRINIVIL) 40 mg tablet TAKE 1 TABLET BY MOUTH ONCE DAILY 01/29/2020 Active predniSONE (DELTASONE) 20 mg tablet TAKE 2 TABLETS BY MOUTH ONCE DAILY FOR 5 DAYS 02/02/2020 Active Active Problems Problem Noted Date Diagnosed Date PVD (posterior vitreous detachment), right eye 0 02/03/2020 Family History Medical History Relation Name Comments No Known Problems Brother Cancer Father Hypertension Mother No Known Problems Sister 1 No Known Problems Sister 2 Relation Name Status Comments Brother Alive Father Mother Sister 1 Alive Sister 2 Alive Social History Tobacco Use Types Packs/Day Years Used Date Smoking Tobacco: Former Cigarettes Q uit: 02/02/2019 Smokeless Tobacco: Never Alcohol Use Standard Drinks/Week Comments Never 0 (1 standard drink = 0.6 oz pur e alcohol) Sex and Gender Information Value Date Recorded Sex Assigned at Not on file Legal Sex Male 12:21 PM CDT Gender Identity Not on file Sexual Orientation Not on file Plan of Treatment Health Maintenance Due Date Last Done Comments DTAP/TDAP/TD VACCINES (1 - Tdap) 1978 COLORECTAL SCREENING 2004 Colorectal Cancer Screening 2004 FIT-DNA Q 3 years 2004 FIT/FOBT Q 1 year 2004 Flex Sig/CT Colonography Q 5 years 2004 PNEUMOCOCCAL VACCINE 50+ YEARS (1 of 1 - PCV) 09/15/20 09 ZOSTER VACCINE (1 of 2) 2009 INFLUENZA VACCINE (#1) 2025 RSV VACCINE (60+ or ) (1 - 1-dose 75+ series) 2034 Insurance TRUE [employer] EXCHANGE [place] [id number]
--- OUTSIDE RECORDS SUMMARY | 2025-04-19 13:44 | XMS_ITS | Clinical Summary ---
Author Organization [facility] Address [address] [facility] Attn: Epic Prelude ADT [place] [address] Care Team Providers Care Horseshoer Name Role Phone Unavailable Primary Care Provider Unavailabl e Allergies No known active allergies Medications amLODIPine (NORVASC) 10 mg tablet TAKE 1 TABLET BY MOUTH ONCE DAILY 01/29/2020 Active ibuprofen (MOTRIN) 800 mg tablet TAKE 1 TABLET BY MOUTH EVERY 8 HOURS NEEDED WITH FOOD FOR PAIN 02/02/2020 Active lisinopriL (PRINIVIL) 40 mg tablet TAKE 1 TABLET BY MOUTH ONCE DAILY 01/29/2020 Active predniSONE (DELTASONE) 20 mg tablet TAKE 2 TABLETS BY MOUTH ONCE DAILY FOR 5 DAYS 02/02/2020 Active atorvastatin (LIPITOR) 40 mg tablet TAKE 1 TABLET BY MOUTH NIGHTLY 01/29/2020 Active Active Problems Problem Noted Date Diagnosed [...] at Not on file Legal Sex Male 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
--- OUTSIDE RECORDS SUMMARY | 2025-04-19 13:44 | XMS_ITS ---
Author Organization Unknown TREATMENT PLAN [facility] Start Date Provider Encounter for Check-up [phone] [facility]
--- NOTE | 2025-04-19 14:05 | W.ED.WEAKNES ---
HPI - Weakness General: Chief complaint: Weakness Stated complaint: weak,feels like hes gonna pass out, abd labs Time Seen by Provider: 04/19/25 13:51 History of Present Illness: 64-year-old male presents the emergency room complaining of generalized weakness for the last 2 weeks has been getting a little bit worse. 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 He is have appetite loss and some diarrhea. No fever sweats chills denies chest pain or palpitations. Associated symptoms: Denies chest pain, chills, dysuria or fever(s) Related Data Home Medications ?Medication ?Instructions ?Recorded ?Confirmed amlodipine 10 mg tablet 10 mg PO DAILY 05/27/24 04/19/25 lisinopril 40 mg tablet 40 mg PO DAILY 05/27/24 04/19/25 meloxicam 15 mg tablet 15 mg PO DAILY PRN knee pain 10/13/24 04/19/25 gabapentin 100 mg capsule 100 mg PO TID PRN nerve pain 04/19/25 04/19/25 hydroxyzine HCl 25 mg tablet 25 - 50 mg PO Q6H PRN Anxiety 04/19/25 04/19/25 ondansetron HCl 8 mg tablet See Rx Instructions .Route 04/19/25 04/19/25 .COMPLEX PRN Nausea And Vomiting prochlorperazine maleate 10 mg See Rx Instructions .Route 04/19/25 04/19/25 tablet .COMPLEX PRN Nausea Previous Rx's ?Medication ?Instructions ?Recorded lisinopril 40 mg tablet 20 mg (1/2 x 40 mg) PO DAILY #30 04/19/25 tabs metoprolol succinate 25 mg 25 mg PO DAILY #30 tabs 04/19/25 tablet,extended release 24 hr Allergies Allergy/AdvReac Type Severity Reaction Status Date / Time No Known Allergies Allergy Verified 04/19/25 13:46 Review of Systems Const: Denies: fever(s) or chills Card: Denies: chest pain Resp: Denies: dyspnea GI: Denies: abdominal pain : Denies: dysuria, urinary frequency or urinary urgency Musc: Denies: neck pain or back pain Skin/Breast: Denies: rash PFSH ED PFSH: Medical History Hypertension Social History Smoking and tobacco/nicotine status: never used tobacco/nicotine Alcohol intake: never Substance/Drug Use: never Physical Exam Const: GENERAL APPEARANCE: cooperative ORIENTATION/CONSCIOUSNESS: Yes awake, Yes oriented to person, Yes oriented to place and Yes oriented to time HENMT: COMMON NORMALS: normocephalic, atraumatic and hearing grossly normal bilaterally HEAD & SCALP: normocephalic and atraumatic Resp: COMMON NORMALS: normal respiratory effort, No retractions, No use of accessory muscles and clear to auscultation bilaterally AUSCULTATION: clear to auscultation bilaterally Cardio: COMMON NORMALS: regular rate, regular rhythm and No murmurs present (Cardio) RATE: regular rate RHYTHM: regular rhythm GI: COMMON NORMALS: Soft to palpation and No hepatosplenomegaly present AUSCULTATION: Yes normoactive bowel sounds PALPATION: Yes Soft to palpation, No Tenderness to palpation present (GI), No Guarding due to palpation present (GI) and Yes No hepatosplenomegaly present Extremity: COMMON NORMALS: normal to inspection, capillary refill normal, no clubbing, cyanosis or edema, no calf tenderness and no pedal edema Neuro: SENSORIUM/ORIENTATION: Yes oriented to person, Yes oriented to place and Yes oriented to time Skin: COMMON NORMALS: no rashes or lesions noted GENERAL SKIN EXAM: no rashes or lesions noted Course Vital Signs: Vital signs: Vital Signs Temperature 98.8 F 04/19/25 13:40 Pulse Rate 74 04/19/25 17:18 Respiratory Rate 16 04/19/25 13:40 Blood Pressure 155/90 04/19/25 17:18 Pulse Oximetry 99 04/19/25 17:18 Oxygen Delivery Me thod Room Air 04/19/25 15:26 MDM - Weakness Medical Decision Making Ordered a C. difficile as well with the patient states he only is 1 loose stool per day has not had any while he has been here. He is mildly anemic he has not noticed any hematochezia or melena. His creatinine has been climbing recently suspect his anemia is related to this. He does feel better after IV fluids. Discharge home decrease his lisinopril to 20 mg daily continue the amlodipine add metoprolol 25 p.o. daily he should follow-up for repeat chemistries and recheck of his blood pressure his primary care doctor towards the end of the week return if he has further problems. Lab Data 04/19/25 14:00 04/19/25 14:00 Radiology Impressions Chest X-Ray 04/19/25 13:40 IMPRESSION: Stable chest without acute abnormality. Laboratory Results WBC 5.97 10^3/uL (3.29-11.43) 04/19/25 14:00 RBC 3.45 10^6/uL (3.85-5.65) L 04/19/25 14:00 Hgb 10.40 g/dL (11.27-16.99) L 04/19/25 14:00 Hct 30.2 % (37-53) L 04/19/25 14:00 MCV 87.5 fl (82-101) 04/19/25 14:00 MCH 30.1 pg (27-33) 04/19/25 14:00 MCHC 34.4 g/dL (30-55) 04/19/25 14:00 RDW 14.7 % (12.1-15.1) 04/19/25 14:00 Plt Count 170 10^3/cmm (157-399) 04/19/25 14:00 MPV 9.2 fL (7.4-10.4) 04/19/25 14:00 Neut % (Auto) 79.7 % 04/19/25 14:00 Lymph % (Auto) 8.9 % 04/19/25 14:00 [place] % (Auto) 9.4 % 04/19/25 14:00 Eos % (Auto) 0.3 % 04/19/25 14:00 Baso % (Auto) 0.5 % 04/19/25 14:00 Neut # (Auto) 4.76 10^3/uL (1.8-7.7) 04/19/25 14:00 Lymph # (Auto) 0.5 10^3/uL (0.8-4.8) L 04/19/25 14:00 [place] # (Auto) 0.6 10^3/uL (0.2-0.9) 04/19/25 14:00 Eos # (Auto) 0.0 10^3/uL (0.0-0.8) 04/19/25 14:00 Baso # (Auto) 0.0 10^3/uL (0.0-0.1) 04/19/25 14:00 Nucleated RBC % (auto) 0 % 04/19/25 14:00 Nucleated RBCs # 0.0 /100WBC 04/19/25 14:00 PT 15.10 SECONDS (12.1-14.9) H 04/19/25 14:00 INR 1.11 (0.8-1.2) 04/19/25 14:00 Sodium 133 mmol/L (136-145) L 04/19/25 14:00 Potassium 4.0 mmol/L (3.5-5.1) 04/19/25 14:00 Chloride 97 mmol/L (98-107) L 04/19/25 14:00 Carbon Dioxide 24 mmol/L (22-29) 04/19/25 14:00 Anion Gap 16.0 (5-19) 04/19/25 14:00 BUN 20 mg/dL (8-23) 04/19/25 14:00 Creatinine 1.7 mg/dL (0.7-1.2) H 04/19/25 14:00 GFR Calculation 40.7 mL/min (90-130) L 04/19/25 14:00 Glucose 98 mg/dL (65-115) 04/19/25 14:00 POC Glucose 120 mg/dL (70-110) H 04/19/25 13:46 Calculated Osmolality 279 mOsm/kg (285-295) L 04/19/25 14:00 Calcium 9.4 mg/dL (8.5-10.5) 04/19/25 14:00 Magnesium 1.4 mg/dL (1.7-2.3) L 04/19/25 14:00 Total Bilirubin 0.3 mg/dL (0.15-1.2) 04/19/25 14:00 AST 17 U/L (0-40) 04/19/25 14:00 ALT 13 U/L (0-41) 04/19/25 14:00 Alkaline Phosphatase 78 U/L (40-130) 04/19/25 14:00 Total Protein 6.5 g/dL (6.6-8.7) L 04/19/25 14:00 Albumin 3.9 g/dL (3.5-5.2) 04/19/25 14:00 Globulin 2.6 g/dL (1.3-4.6) 04/19/25 14:00 Urine Color Yellow (Yellow) 04/19/25 15:41 Urine Appearance Cloudy (CLEAR) A 04/19/25 15:41 Urine pH 5.5 (5-7) 04/19/25 15:41 Ur Specific [place] 1.014 (1.005-1.030) 04/19/25 15:41 Urine Protein Negative (Negative) 04/19/25 15:41 Urine Glucose (UA) Negative (Normal) 04/19/25 15:41 Urine Ketones Trace (Negative) 04/19/25 15:41 Urine Blood Negative (Negative) 04/19/25 15:41 Urine Nitrate Negative (Negative) 04/19/25 15:41 Urine Bilirubin Negative (Negative) 04/19/25 15:41 Urine Urobilinogen 1.0 mg/dL (Negative) 04/19/25 15:41 Ur Leukocyte Esterase Negative (Negative) 04/19/25 15:41 Urine RBC 0-2 /hpf (0-2) 04/19/25 15:41 Urine WBC 0-5 /hpf (0-5) 04/19/25 15:41 Ur Squamous Epith Cells 0-5 /hpf (0-5) 04/19/25 15:41 Amorphous Sediment Not Reportable 04/19/25 15:41 Urine Bacteria None seen /hpf (NONE) 04/19/25 15:41 Hyaline Casts 2.87 /lpf 04/19/25 15:41 All radiology interpretation(s) finalized by discharge Discharge Plan Discharge Patient Disposition: Home Clinical Impression: Anemia, Weakness, Chronic kidney disease (CKD) Condition: Stable Prescriptions: New metoprolol succinate 25 mg tablet extended release 24 hr 25 mg PO DAILY Qty: 30 0RF Continued lisinopril 40 mg tablet 40 mg PO DAILY Changed lisinopril 40 mg tablet 20 mg PO DAILY Qty: 30 0RF No Action amlodipine 10 mg tablet 10 mg PO DAILY meloxicam 15 mg tablet 15 mg PO DAILY PRN (Reason: knee pain) ondansetron HCl 8 mg tablet See Rx Instructions .ROUTE .COMPLEX PRN (Reason: Nausea And Vomiting) Rx Instructions: TAKE 1 TABLET BY MOUTH EVERY 8 HOURS NEEDED FOR NAUSEA/VOMITING. USE IF PROCHLORPERAZINE DOES NOT STOP NAUSEA. prochlorperazine maleate 10 mg tablet See Rx Instructions .ROUTE .COMPLEX PRN (Reason: Nausea) Rx Instructions: TAKE 1 TABLET BY MOUTH EVERY 6 HOURS NEEDED FOR NAUSEA/VOMITING. USE FIRST FOR NAUSEA. hydroxyzine HCl 25 mg tablet 25 - 50 mg PO Q6H PRN (Reason: Anxiety) gabapentin 100 mg capsule 100 mg PO TID PRN (Reason: nerve pain) Discharge Orders: Discharge ED (Routine); Ordered 04/19/25 Ordered By: Luis Alberto Melendrez Referrals: Beth Laird FNP [Primary Care Provider, Nurse Practitioner] Discharge Diet: Usual diet Discharge Activity: Resume usual activity Patient Instructions: Opioid Safety, Pain Management, Patient Portal & [place] Instructions Activity Restrictions/Additional Instructions: Thank you for choosing [facility] for your healthcare needs today. It is very important that you follow up as instructed or that you return to the Emergency Department should you have concerns or if your condition changes or worsens in any way. You were seen in the emergency room complaining of generalized weakness. Your kidney function is slightly elevated. You improved some while you were in the emergency room after you were given fluids. Recommend that you decrease your lisinopril to 20 mg daily. Add metoprolol 25 mg 1 tablet daily. He should follow-up with your primary care doctor towards the end of the week to have your kidney function rechecked Print Language: Spanish Coding Level of Care Code ED Sand Control Worker for Layla Mujica
[2025-04-19 14:06] LABS: Hematocrit 30.2 % (37-53); Hemoglobin 10.40 g/dL (11.27-16.99); Mean Corpuscular HGB Conc 34.4 g/dL (30-55); Mean Corpuscular Hemoglobin 30.1 pg (27-33); Mean Corpuscular Volume 87.5 fl (82-101); Nucleated Red Blood Cells % 0 %; Platelet Count 170 10^3/cmm (157-399); Red Blood Count 3.45 10^6/uL (3.85-5.65); White Blood Count 5.97 10^3/uL (3.29-11.43)
[2025-04-19 14:17] LABS: INR 1.11 (0.8-1.2); Prothrombin Time 15.10 SECONDS (12.1-14.9)
[2025-04-19 14:24] LABS: Alanine Aminotransferase 13 U/L (0-41); Albumin Level 3.9 g/dL (3.5-5.2); Alkaline Phosphatase 78 U/L (40-130); Anion Gap 16.0 (5-19); Aspartate Amino Transferase 17 U/L (0-40); Blood Urea Nitrogen 20 mg/dL (8-23); Calcium 9.4 mg/dL (8.5-10.5); Carbon Dioxide 24 mmol/L (22-29); Chloride 97 mmol/L (98-107); Creatinine Clr Calc Pharmacy 68.2895; Globulin 2.6 g/dL (1.3-4.6); Glucose 98 mg/dL (65-115); Magnesium 1.4 mg/dL (1.7-2.3); Osmolality Calculated 279 mOsm/kg (285-295); Potassium 4.0 mmol/L (3.5-5.1); Sodium 133 mmol/L (136-145); Total Protein 6.5 g/dL (6.6-8.7)
[2025-04-19 15:26] VITALS: BP 136/81; PULSE 70; O2SAT 98
[2025-04-19 16:08] LABS: Glucose Urine UA Negative (Normal); Nitrate Urine Negative (Negative); Specific Gravity, Urine 1.014 (1.005-1.030)
[2025-04-19 16:13] LABS: Add Urine Microscopic? YES
[2025-04-19 17:18] VITALS: BP 155/90; PULSE 74; O2SAT 99
== END 2025-04-19 17:21 | disposition home or self-care (01) ==
PROVIDERS: Emergency Medicine; Emergency Provider Family Medicine; PCP Nurse Practitioner Family
DX: D64.9 Anemia, unspecified (principal); R53.1 Weakness; I12.9 Hypertensive chronic kidney disease with stage 1 through stage 4 chronic kidney disease, or unspecified chronic kidney disease; N18.9 Chronic kidney disease, unspecified; Z85.21 Personal history of malignant neoplasm of larynx
CPT/HCPCS: 36415; 36416; 71045; 80053; 81001; 82962; 83735; 85025; 85610; 93005; 99285; J7030